=== PATIENT | male | born 1995 | race Hispanic/Latino ===

== ENCOUNTER 2023-12-01 02:20 | Emergency (ER) | payer OTHER ==
[~2023-12-01] VITALS: Ht 170.2 cm; Wt 74.8 kg
[2023-12-01 02:37] VITALS: BP 121/68; PULSE 80; RESP 18; O2SAT 98
== END 2023-12-01 03:28 ==
LOC: EDH 02:20
DX: F10.129 Alcohol abuse with intoxication, unspecified (principal); Z02.89 Encounter for other administrative examinations; V89.2XXA Person injured in unspecified motor-vehicle accident, traffic, initial encounter; Y93.I9 Activity, other involving external motion; Y92.488 Other paved roadways as the place of occurrence of the external cause; Y99.8 Other external cause status